=== PATIENT | male | born 1975 | race African-American/Black ===

== ENCOUNTER 2019-05-02 18:16 | Inpatient (IN) | payer OTHER ==
[2019-05-02 21:50] VITALS: BMI 30.8
--- NOTE | 2019-05-02 23:23 | HP ---
"CIWA Score Nausea/Vomitin-No Nausea/No Vomiting Muscle Tremors: 3 Anxiety: 2 Agitation: 4-Moderately Restless Paroxysmal Sweats: 3 (Increased facial moisture) Orientation: 1-Uncertain about Date Tacttile Disturbances: 0-None Auditory Disturbances: 1-Very Mild (States always hears voices) Visual Disturbances: 0-None Headache: 0-None Present CIWA-Ar Total Score: 14 - Admission Criteria [facility]ASAS Guidelines: Admission for Medically Managed Detox: Requires at least one of the followin. CIWA greater than 12 2. Seizures within the past 24 hours 3. Delirium tremens within the past 24 hours 4. Hallucinations within the past 24 hours 5. Acute intervention needed for co occurring medical disorder 6. Acute intervention needed for co occurring psychiatric disorder 7. Severe withdrawal that cannot be handled at a lower level of care (continued vomiting, continued diarrhea, abnormal vital signs) requiring intravenous medication and/or fluids 8. Patient presents the following: CIWA greater than 12 Admission Criteria Met: Admission criteria met Admission ROS S - [facility] Chief Complaint: I'm coming off alcohol. Allergies/Adverse Reactions: Allergies Allergy/AdvReac Type Severity Reaction Status Date / Time No Known Allergies Allergy Verified 05/02/19 21:35 History of Present Illness: [address] [facility] by [facility] out-patient program for alcohol detox. had a PPD at [facility] 4 days ago and does not want to repeat. Alcohol use began at age 26. has been drinking a pint liquor plus beers daily, for years. Cocaine use began at age 26. Marijuana use began at age 22. No length of sobriety. Denies seizures, blackouts, overdoses. PMHx: Denies significant PMH. MHHx: Anxiety and Depression. Denies thoughts of harming self or others. Last saw MH Provider 2 weeks ago. Has not been compliant w/ medications x 3-4 weeks. States hears voices. Voices do not tell him to do bad things. Search Terms: Darrius Baca, 1975 Search Date: 05/02/2019 11:21:05 PM The Drug Utilization Report below displays all of the controlled substance prescriptions, if any, that your patient has filled in the last twelve months. The information displayed on this report is compiled from pharmacy submissions to the Department, and accurately reflects the information as submitted by the pharmacies. This report was requested by: Rashida Roberts | Reference #: [id number] There are no results for the search terms that you entered. Search Terms: Darrius Bcaa, 1975 Search Date: 05/02/2019 11:21:36 PM States Searched: [place], [place], [place], [place], [place], [place], [place] The Drug Utilization Report below displays the controlled substance prescriptions, if any, that were dispensed in the indicated state(s). The information displayed on this report is compiled from requests submitted to other states' PMPs, and accurately reflects the information as returned by them. Blank abad indicate data not provided by other state. This report was requested by: Rashida Roberts | Reference #: [id number] Exam Limitations: No Limitations - Ebola screening Have you traveled outside of the country in the last 21 days: No (N) Have you had contact with anyone from an Ebola affected area: No Have you been sick,other than usual withdrawal symptoms: No (Denies recent exposure to measles) Do you have a fever: No - Review of Systems Constitutional: Diaphoresis EENT: reports: No Symptoms Reported Respiratory: reports: No Symptoms reported Cardiac: reports: No Symptoms Reported GI: reports: No Symptoms Reported : reports: No Symptoms Reported Musculoskeletal: reports: No Symptoms Reported Integumentary: reports: No Symptoms Reported Neuro: reports: No Symptoms reported Endocrine: reports: No Symptoms Reported Hematology: reports: No Symptoms Reported Psychiatric: reports: Judgement Intact, Orientated x3 (Off by 1 day), Agitated, Anxious, Depressed (Denies thoughts of harming self or others.), other (Hears voices) Patient History - PPD History Previous Implant?: Yes Documented Results: Negative w/proof Implanted On Prior [facility] Admission?: No - Smoking Cessation Smoking history: Current every day smoker Have you smoked in the past 12 months: Yes Aproximately how many cigarettes per day: 20 Hx Chewing Tobacco Use: Yes Initiated information on smoking cessation: Yes 'Breaking Loose' booklet given: 05/02/19 - Substance & Tx. History Hx Alcohol Use: Yes Hx Substance Use: Yes Substance Use Type: Alcohol, Cocaine, Marijuana Hx Substance Use Treatment: Yes (detox, ou-patient program ) - Substances abused Cocaine Substance route: Inhalation Frequency: 3-6 times per week Amount used: get it for free. Age of first use: 26 Date of last use: 04/27/19 Marijuana/Hashish Substance route: Smoking Frequency: Daily Amount used: 4 blunts Age of first use: 22 Date of last use: 05/02/19 Alcohol Substance route: Oral Frequency: Daily Amount used: 1 pint / 5 beers of 24 ounces Age of first use: 22 Date of last use: 05/02/19 Admission Physical Exam [facility] - Vital Signs Vital Signs: Vital Signs - 24 hr 05/02/19 21:35 Temperature 97.4 F L Pulse Rate 221 H Respiratory 83 H Rate Blood Pressure 129/88 - Physical General Appearance: Yes: Nourished, Mild Distress, Obese, Sweating (Increased facial moisture), Anxious HEENTM: Yes: EOMI (Jerking movement upon lateral gaze), Hearing grossly Normal, Normocephalic, Normal Voice, NASIR, Pharynx Normal Respiratory: Yes: Chest Non-Tender, Lungs Clear, No Respiratory Distress, No Accessory Muscle Use Neck: Yes: No masses,lesions,Nodules, Supple Breast: Yes: Breast Exam Deferred Cardiology: Yes: Regular Rhythm, Regular Rate, S1, S2 Abdominal: Yes: Non Tender, Soft, Protuberent (Increased abdominal adiposity) Genitourinary: Yes: Within Normal Limits Back: Yes: Normal Inspection Musculoskeletal: Yes: full range of Motion, Gait Steady Extremities: Yes: Normal Capillary Refill, Tremors (Tremors of hands when arms elevated) Neurological: Yes: roof shingler II-XII NML intact (Jerking movement upon lateral gaze), Alert, Motor Strength 5/5, Normal Response, Other (Unsure of exact date) Integumentary: Yes: Normal Color, Warm, Other (cracked skin at toes and feet) Lymphatic: Yes: Within Normal Limits - Diagnostic (1) Alcohol dependence with uncomplicated withdrawal Current Visit: Yes Status: Acute (2) Nicotine dependence, uncomplicated Current Visit: Yes Status: Chronic Qualifiers: Nicotine product type: cigarettes Qualified Code(s): F17.210 - Nicotine dependence, cigarettes, uncomplicated (3) Cocaine dependence, uncomplicated Current Visit: Yes Status: Chronic (4) Cannabis dependence, uncomplicated Current Visit: Yes Status: Chronic (5) Tinea pedis Current Visit: Yes Status: Chronic Qualifiers: Laterality: bilateral Qualified Code(s): B35.3 - Tinea pedis (6) Auditory hallucinations Current Visit: Yes Status: Chronic Comment: Denies thoughts of harming self or others. (7) Nystagmus Current Visit: Yes Status: Acute (8) Obesity (BMI 30.0-34.9) Current Visit: Yes Status: Chronic Cleared for Admission S - Detox or Rehab [facility] Level of Care: Medically Managed Detox Regimen/Protocol: Librium Claeared for Rehab Admission: No Breathalyzer - Breathalyzer Breathalyzer: 0.146 Urine Drug Screen - Test Device Lot number: [id number] Expiration date: 01/23/21 - Control Is test valid?: Yes - Results Drug screen NEGATIVE: No Urine drug screen results: THC-Marijuana, MALISSA-Cocaine Inpatient Rehab Admission - Rehab Decision to Admit Inpatient rehab admission?: No"
[2019-05-02] MEDS ORDERED: BISMUTH SUBSALICYLATE 524 MG/30 ML UD PO PRN (23:56)
[2019-05-02] MEDS ORDERED: METHOCARBAMOL 500 MG TABLET PO PRN (23:56)
[2019-05-02] MEDS ORDERED: MAGNESIUM HYDROX 2400MG/30ML ORAL SUSPENSION 30 ML CUP PO PRN (23:56)
[2019-05-02] MEDS ORDERED: NICOTINE POLACRILEX 2 MG GUM BUC PRN (23:56)
[2019-05-02] MEDS ORDERED: IBUPROFEN 400 MG TABLET (FP) PO PRN (23:56)
[2019-05-02] MEDS ORDERED: MAGNESIUM CITRATE 300 ML BOTTLE PO PRN (23:56)
[2019-05-02] MEDS ORDERED: MAG HYDROX/AL HYDROX/SIMETH 30 ML UNIT-DOSE CUP PO PRN (23:56)
[2019-05-02] MEDS ORDERED: MELATONIN 5 MG TABLETS PO PRN (23:56)
[2019-05-02] MEDS ORDERED: MENTHOL/PHENOL 1 EACH UD MM PRN (23:56)
[2019-05-02] MEDS ORDERED: ACETAMINOPHEN 325 MG TABLET (FP) PO PRN ×2 (23:56)
[2019-05-03] MEDS ORDERED: chlordiazePOXIDE HCL 25 MG CAPSULE PO ONE (00:03)
[2019-05-03] MEDS ORDERED: chlordiazePOXIDE HCL 25 MG CAPSULE PO PRN (00:03)
[2019-05-03] MEDS: chlordiazePOXIDE HCL 25 MG CAPSULE PO SCH ×4 (05:54→22:11)
--- NOTE | 2019-05-03 10:10 | PN ---
S CIWA - CIWA Score Nausea/Vomitin-No Nausea/No Vomiting Muscle Tremors: 2 Anxiety: 2 Agitation: 2 Paroxysmal Sweats: 3 Orientation: 0-Oriented Tacttile Disturbances: 0-None Auditory Disturbances: 0-None Visual Disturbances: 0-None Headache: 2-Mild CIWA-Ar Total Score: 11 [facility] Progress Note (SOAP) Subjective: c/o sweats, headache, anxiety, and shakes. Objective: 05/03/19 10:09 Vital Signs 05/03/19 05/03/19 05/03/19 03:30 06:08 09:25 Temperature 98.6 F 98.4 F Pulse Rate 94 H 88 Respiratory 18 18 18 Rate Blood Pressure 128/80 146/96 Labs pending. Assessment: 05/03/19 10:09 AOX3, in no respiratory distress, full rom, ambulating in the unit. Withdrawal symptoms. Plan: continue detox increase fluids.
[2019-05-03] MEDS: PRENATAL VITAMINS W/ FOLIC ACID TABLET (FP) PO SCH (10:21)
[2019-05-03] MEDS: NICOTINE 21 MG/24 HOURS TOPICAL PATCH TD SCH (10:22)
[2019-05-03 11:05] LABS: ALBUMIN 3.7 g/dl (3.4-5.0); BILIRUBIN,TOTAL 0.2 mg/dL (0.2-1); BLOOD UREA NITROGEN 14.7 mg/dL (7-18); CALCIUM 8.9 mg/dL (8.5-10.1); CREATININE 1.1 mg/dL (0.55-1.3); POTASSIUM 4.4 mmol/L (3.5-5.1); TOT PROT 7.8 g/dl (6.4-8.2)
[2019-05-03 11:47] LABS: PH,URINE 5.5 (5.0-8.0); URINE APPEARANCE CLEAR; URINE BILIRUBIN NEGATIVE (NEGATIVE); URINE COLOR YELLOW; URINE GLUCOSE (UA) NEGATIVE (NEGATIVE); URINE KETONE NEGATIVE (NEGATIVE); URINE LEUK ESTERASE NEGATIVE (NEGATIVE); URINE NITRITE NEGATIVE (NEGATIVE); URINE PROTEIN NEGATIVE (NEGATIVE); URINE UROBILINOGEN 0.2 mg/dL (0.2-1.0)
[2019-05-03 11:53] LABS: HEMATOCRIT 41.9 % (35.4-49); HEMOGLOBIN 13.7 GM/dL (11.7-16.9); MCH 26.7 pg (25.7-33.7); MCHC 32.6 g/dl (32.0-35.9); MEAN PLT VOLUME 9.2 fl (7.5-11.1); RBC 5.11 M/mm3 (4.00-5.60); RDW 16.1 % (11.9-15.9); WHITE BLOOD COUNT 3.1 K/mm3 (4.0-10.0)
--- NOTE | 2019-05-03 12:45 | CONSULT ---
[facility] Psychiatric Consult - Data Date of interview: 05/03/19 Admission source: [facility] Identifying data: THREE visits at bedside for the purpose of psychiatric interview. Mr Baca refuses. Discussed with nursing staff.
[2019-05-03 18:00] LABS: PLATELET COUNT 194 K/MM3 (134-434)
[2019-05-03] MEDS: THIAMINE HCL 100 MG TABLET (FP) PO SCH (22:11)
[2019-05-04] MEDS: chlordiazePOXIDE HCL 25 MG CAPSULE PO SCH ×4 (06:09→22:01)
[2019-05-04] MEDS: PRENATAL VITAMINS W/ FOLIC ACID TABLET (FP) PO SCH (10:37)
[2019-05-04] MEDS: NICOTINE 21 MG/24 HOURS TOPICAL PATCH TD SCH (10:38)
--- NOTE | 2019-05-04 11:33 | PN ---
[facility] CIWA - CIWA Score Nausea/Vomitin-No Nausea/No Vomiting Muscle Tremors: 2 Anxiety: 2 Agitation: 2 Paroxysmal Sweats: 1-Minimal Palms Moist Orientation: 0-Oriented Tacttile Disturbances: 0-None Auditory Disturbances: 0-None Visual Disturbances: 0-None Headache: 1-Very Mild CIWA-Ar Total Score: 8 S Progress Note (SOAP) Subjective: long history of hypertension non adherence with medication denies chest pain mild headache Objective: 05/04/19 11:37 Vital Signs Temperature 97.8 F 05/04/19 09:11 Pulse Rate 83 05/04/19 09:11 Respiratory Rate 20 05/04/19 09:11 Blood Pressure 153/100 05/04/19 09:11 O2 Sat by Pulse Oximetry (%) Laboratory Last Values WBC 3.1 K/mm3 (4.0-10.0) L 05/03/19 08:00 RBC 5.11 M/mm3 (4.00-5.60) 05/03/19 08:00 Hgb 13.7 GM/dL (11.7-16.9) 05/03/19 08:00 Hct 41.9 % (35.4-49) 05/03/19 08:00 MCV 82.0 fl (80-96) 05/03/19 08:00 MCH 26.7 pg (25.7-33.7) 05/03/19 08:00 MCHC 32.6 g/dl (32.0-35.9) 05/03/19 08:00 RDW 16.1 % (11.9-15.9) H 05/03/19 08:00 Plt Count 194 K/MM3 (134-434) 05/03/19 08:00 MPV 9.2 fl (7.5-11.1) 05/03/19 08:00 Sodium 143 mmol/L (136-145) 05/03/19 08:00 Potassium 4.4 mmol/L (3.5-5.1) 05/03/19 08:00 Chloride 112 mmol/L (98-107) H 05/03/19 08:00 Carbon Dioxide 24 mmol/L (21-32) 05/03/19 08:00 Anion Gap 7 MMOL/L (8-16) L 05/03/19 08:00 BUN 14.7 mg/dL (7-18) 05/03/19 08:00 Creatinine 1.1 mg/dL (0.55-1.3) 05/03/19 08:00 Est GFR (CKD-EPI)AfAm 94.79 05/03/19 08:00 Est GFR (CKD-EPI)NonAf 81.78 05/03/19 08:00 Random Glucose 82 mg/dL (74-106) 05/03/19 08:00 Calcium 8.9 mg/dL (8.5-10.1) 05/03/19 08:00 Total Bilirubin 0.2 mg/dL (0.2-1) 05/03/19 08:00 AST 35 U/L (15-37) 05/03/19 08:00 ALT 31 U/L (13-61) 05/03/19 08:00 Alkaline Phosphatase 87 U/L (45-117) 05/03/19 08:00 Total Protein 7.8 g/dl (6.4-8.2) 05/03/19 08:00 Albumin 3.7 g/dl (3.4-5.0) 05/03/19 08:00 Urine Color Yellow 05/03/19 09:00 Urine Appearance Clear 05/03/19 09:00 Urine pH 5.5 (5.0-8.0) 05/03/19 09:00 Ur Specific [place] 1.004 (1.010-1.035) L 05/03/19 09:00 Urine Protein Negative (NEGATIVE) 05/03/19 09:00 Urine Glucose (UA) Negative (NEGATIVE) 05/03/19 09:00 Urine Ketones Negative (NEGATIVE) 05/03/19 09:00 Urine Blood Negative (NEGATIVE) 05/03/19 09:00 Urine Nitrite Negative (NEGATIVE) 05/03/19 09:00 Urine Bilirubin Negative (NEGATIVE) 05/03/19 09:00 Urine Urobilinogen 0.2 mg/dL (0.2-1.0) 05/03/19 09:00 Ur Leukocyte Esterase Negative (NEGATIVE) 05/03/19 09:00 RPR Titer Nonreactive (NONREACTIVE) 05/03/19 08:00 lab noted begin amlodipine 5 mg po bid Assessment: 05/04/19 11:37 alcohol withdrawal sx Plan: continue detox
[2019-05-04] MEDS: amLODIPine BESYLATE 5 MG TABLET (FP) PO SCH ×2 (12:16→22:01)
[2019-05-04] MEDS: THIAMINE HCL 100 MG TABLET (FP) PO SCH (22:01)
[2019-05-05] MEDS ORDERED: chlordiazePOXIDE HCL 10 MG CAPSULE PO PRN (05:00)
[2019-05-05] MEDS ORDERED: chlordiazePOXIDE HCL 10 MG CAPSULE PO SCH (05:00)
[2019-05-05 05:58] VITALS: BP 123/89; PULSE 72; TEMP 98.2
--- NOTE | 2019-05-05 11:54 | DS ---
[facility] Detox Discharge Summary Admission Date: 05/02/19 Discharge Date: 05/05/19 - History Present History: Alcohol Dependence Additional Comments: 44 years old male admitted on 05/02/19 for alcohol withdrawal stabilization feeling better today prefers to go to [facility] today alert no acute distress Pertinent Past History: bring in medication list and lab report to aftercare appointment - Physical Exam Results Vital Signs: Vital Signs Temperature 98.2 F 05/05/19 05:57 Pulse Rate 72 05/05/19 05:57 Respiratory Rate 18 05/05/19 06:26 Blood Pressure 123/89 05/05/19 05:57 O2 Sat by Pulse Oximetry (%) Pertinent Admission Physical Exam Findings: alcohol withdrawal sx Laboratory Last Values WBC 3.1 K/mm3 (4.0-10.0) L 05/03/19 08:00 RBC 5.11 M/mm3 (4.00-5.60) 05/03/19 08:00 Hgb 13.7 GM/dL (11.7-16.9) 05/03/19 08:00 Hct 41.9 % (35.4-49) 05/03/19 08:00 MCV 82.0 fl (80-96) 05/03/19 08:00 MCH 26.7 pg (25.7-33.7) 05/03/19 08:00 MCHC 32.6 g/dl (32.0-35.9) 05/03/19 08:00 RDW 16.1 % (11.9-15.9) H 05/03/19 08:00 Plt Count 194 K/MM3 (134-434) 05/03/19 08:00 MPV 9.2 fl (7.5-11.1) 05/03/19 08:00 Sodium 143 mmol/L (136-145) 05/03/19 08:00 Potassium 4.4 mmol/L (3.5-5.1) 05/03/19 08:00 Chloride 112 mmol/L (98-107) H 05/03/19 08:00 Carbon Dioxide 24 mmol/L (21-32) 05/03/19 08:00 Anion Gap 7 MMOL/L (8-16) L 05/03/19 08:00 BUN 14.7 mg/dL (7-18) 05/03/19 08:00 Creatinine 1.1 mg/dL (0.55-1.3) 05/03/19 08:00 Est GFR (CKD-EPI)AfAm 94.79 05/03/19 08:00 Est GFR (CKD-EPI)NonAf 81.78 05/03/19 08:00 Random Glucose 82 mg/dL (74-106) 05/03/19 08:00 Calcium 8.9 mg/dL (8.5-10.1) 05/03/19 08:00 Total Bilirubin 0.2 mg/dL (0.2-1) 05/03/19 08:00 AST 35 U/L (15-37) 05/03/19 08:00 ALT 31 U/L (13-61) 05/03/19 08:00 Alkaline Phosphatase 87 U/L (45-117) 05/03/19 08:00 Total Protein 7.8 g/dl (6.4-8.2) 05/03/19 08:00 Albumin 3.7 g/dl (3.4-5.0) 05/03/19 08:00 Urine Color Yellow 05/03/19 09:00 Urine Appearance Clear 05/03/19 09:00 Urine pH 5.5 (5.0-8.0) 05/03/19 09:00 Ur Specific [place] 1.004 (1.010-1.035) L 05/03/19 09:00 Urine Protein Negative (NEGATIVE) 05/03/19 09:00 Urine Glucose (UA) Negative (NEGATIVE) 05/03/19 09:00 Urine Ketones Negative (NEGATIVE) 05/03/19 09:00 Urine Blood Negative (NEGATIVE) 05/03/19 09:00 Urine Nitrite Negative (NEGATIVE) 05/03/19 09:00 Urine Bilirubin Negative (NEGATIVE) 05/03/19 09:00 Urine Urobilinogen 0.2 mg/dL (0.2-1.0) 05/03/19 09:00 Ur Leukocyte Esterase Negative (NEGATIVE) 05/03/19 09:00 RPR Titer Nonreactive (NONREACTIVE) 05/03/19 08:00 lab noted - Treatment Hospital Course: Detox Protocol Followed, Detoxed Safely, Responded well, Discharged Condition Good, Rehab Referral Accepted Patient has Accepted a Rehab Referral to: [facility] - Medication Discharge Medications: Ambulatory Orders Risperidone [Risperdal] 20 mg PO HS 05/02/19 Amlodipine Besylate [Norvasc -] 5 mg PO BID #30 tablet 05/05/19 - Diagnosis (1) Hypertension Status: Chronic Qualifiers: Hypertension type: essential hypertension Qualified Code(s): I10 - Essential (primary) hypertension (2) Alcohol dependence with uncomplicated withdrawal Status: Acute (3) Nicotine dependence, uncomplicated Status: Acute Qualifiers: Nicotine product type: cigarettes Qualified Code(s): F17.210 - Nicotine dependence, cigarettes, uncomplicated - AMA Did Patient Leave Against Medical Advice: No
[2019-05-06] MEDS ORDERED: chlordiazePOXIDE HCL 10 MG CAPSULE PO SCH (05:00)
== END 2019-05-05 08:50 | disposition home or self-care (01) | DRG 774 ==
LOC: YASAS 18:16 → Y3N 23:36
PROVIDERS: ADMIT Surgery; ATTEND Surgery
PROC: HZ2ZZZZ Detoxification Services for Substance Abuse Treatment (ICD-10-PCS; principal; 2019-05-02)
DX: F10.230 Alcohol dependence with withdrawal, uncomplicated (principal); F14.20 Cocaine dependence, uncomplicated; F12.20 Cannabis dependence, uncomplicated; F17.210 Nicotine dependence, cigarettes, uncomplicated; I10 Essential (primary) hypertension; B35.3 Tinea pedis; H55.00 Unspecified nystagmus; R44.0 Auditory hallucinations; E66.9 Obesity, unspecified; Z68.30 Body mass index [BMI] 30.0-30.9, adult
CPT/HCPCS: 36415; 80053; 81003; 85027; 86593

== ENCOUNTER 2022-03-21 14:07 | Inpatient (IN) | payer OTHER ==
[2022-03-21] MEDS ORDERED: MAGNESIUM HYDROX 2400MG/30ML ORAL SUSPENSION 30 ML CUP PO PRN (15:45)
[2022-03-21] MEDS ORDERED: P-EPHED 60MG/TRIPROLIDI 2.5MG TABLET PO PRN (15:45)
[2022-03-21] MEDS ORDERED: NICOTINE 10 MG CARTRIDGE (INHALER) IH PRN (15:45)
[2022-03-21] MEDS ORDERED: ACETAMINOPHEN 325 MG TABLET (FP) PO PRN (15:45)
[2022-03-21] MEDS ORDERED: LOPERAMIDE HCL 2 MG CAPSULE PO PRN (15:45)
[2022-03-21] MEDS ORDERED: MAGNESIUM CITRATE 300 ML BOTTLE PO PRN (15:45)
[2022-03-21] MEDS ORDERED: MAG HYDROX/AL HYDROX/SIMETH 30 ML UNIT-DOSE CUP PO PRN (15:45)
[2022-03-21] MEDS ORDERED: guaiFENesin 200 MG/10 ML 10 ML UNIT-DOSE CUPS PO PRN (15:45)
[2022-03-21] MEDS ORDERED: MELATONIN 5 MG TABLETS PO SCH (22:00)
[2022-03-22] MEDS ORDERED: TUBERCULIN PPD 5 TU/0.1ML VIAL ID ONE (01:51)
[2022-03-22] MEDS: PRENATAL VITAMINS W/ FOLIC ACID TABLET (FP) PO SCH ×2 (02:25→09:51)
[2022-03-22] MEDS: NICOTINE 7 MG/24 HOURS TOPICAL PATCH TD SCH ×2 (02:25→09:51)
[2022-03-22] MEDS: THIAMINE HCL 100 MG TABLET (FP) PO SCH ×2 (02:26→21:32)
[2022-03-22] MEDS: hydrOXYzine PAMOATE 25 MG CAPSULE (FP) PO SCH ×3 (02:26→07:07)
[2022-03-22] MEDS ORDERED: hydrOXYzine PAMOATE 25 MG CAPSULE (FP) PO PRN (08:17)
[2022-03-22] MEDS: IBUPROFEN 400 MG TABLET (FP) PO PRN ×2 (09:50→15:33)
[2022-03-22 12:15] LABS: HEMATOCRIT 35.9 % (35.4-49); HEMOGLOBIN 11.8 GM/dL (11.7-16.9); MCH 28.2 pg (25.7-33.7); MCHC 32.9 g/dl (32.0-35.9); MEAN CELL VOLUME 85.9 fl (80-96); MEAN PLT VOLUME 9.9 fl (7.5-11.1); PLATELET COUNT 80 10^3/uL (134-434); RBC 4.18 M/mm3 (4.00-5.60); RDW 15.7 % (11.9-15.9); WHITE BLOOD COUNT 4.2 K/mm3 (4.0-10.0)
[2022-03-22 12:20] LABS: ALBUMIN 2.8 g/dl (3.4-5.0); CALCIUM 9.2 mg/dL (8.5-10.1)
[2022-03-22 12:22] LABS: BLOOD UREA NITROGEN 7.7 mg/dL (7-18)
[2022-03-22 12:25] LABS: BILIRUBIN,TOTAL 2.1 mg/dL (0.2-1); TOT PROT 7.5 g/dl (6.4-8.2)
[2022-03-22 12:48] LABS: SYPHILIS W/ RPR CONF NON-REACTIVE (NONREACTIVE)
[2022-03-22 14:13] LABS: EPI CELLS 8 /uL (0-25.1); HYALINE CASTS 1 /uL (0-3.1); URINE APPEARANCE CLEAR; URINE BACTERIA 7 /uL (0-1359); URINE BILIRUBIN 1+ (NEGATIVE); URINE COLOR DK YELLOW; URINE GLUCOSE (UA) NEGATIVE (NEGATIVE); URINE KETONE NEGATIVE (NEGATIVE); URINE LEUK ESTERASE TRACE (NEGATIVE); URINE NITRITE NEGATIVE (NEGATIVE); URINE PROTEIN NEGATIVE (NEGATIVE); URINE RBC 4 /uL (0-23.9); URINE WBC 15 /uL (0-25.8)
[2022-03-22] MEDS ORDERED: ACETAMINOPHEN 325 MG TABLET (FP) PO PRN (15:23)
[2022-03-22] MEDS ORDERED: IBUPROFEN 400 MG TABLET (FP) PO PRN (15:35)
[2022-03-22] MEDS: BENZTROPINE MESYLATE 1 MG TABLET PO SCH (21:33)
[2022-03-22] MEDS: traZODone HCL 50 MG TABLET (FP) PO SCH (21:33)
[2022-03-22] MEDS: busPIRone HCL 10 MG TABLET (FP) PO SCH (21:33)
[2022-03-23] MEDS: PRENATAL VITAMINS W/ FOLIC ACID TABLET (FP) PO SCH (10:09)
[2022-03-23] MEDS: ESCITALOPRAM OXALATE 10 MG TABLET PO SCH (10:09)
[2022-03-23] MEDS: busPIRone HCL 10 MG TABLET (FP) PO SCH ×2 (10:09→21:28)
[2022-03-23] MEDS: BENZTROPINE MESYLATE 1 MG TABLET PO SCH ×2 (10:09→21:28)
[2022-03-23] MEDS: NICOTINE 7 MG/24 HOURS TOPICAL PATCH TD SCH (11:08)
[2022-03-23] MEDS ORDERED: ACETAMINOPHEN 325 MG TABLET (FP) PO PRN (17:36)
[2022-03-23] MEDS: IBUPROFEN 400 MG TABLET (FP) PO PRN (17:49)
[2022-03-23] MEDS: traZODone HCL 50 MG TABLET (FP) PO SCH (21:28)
[2022-03-23] MEDS: THIAMINE HCL 100 MG TABLET (FP) PO SCH (21:28)
[2022-03-24] MEDS: ESCITALOPRAM OXALATE 10 MG TABLET PO SCH (10:26)
[2022-03-24] MEDS: busPIRone HCL 10 MG TABLET (FP) PO SCH ×2 (10:26→21:33)
[2022-03-24] MEDS: BENZTROPINE MESYLATE 1 MG TABLET PO SCH ×2 (10:26→21:33)
[2022-03-24] MEDS: NICOTINE 7 MG/24 HOURS TOPICAL PATCH TD SCH (10:26)
[2022-03-24] MEDS: PRENATAL VITAMINS W/ FOLIC ACID TABLET (FP) PO SCH (10:26)
[2022-03-24] MEDS: IBUPROFEN 400 MG TABLET (FP) PO PRN ×2 (10:27→21:34)
[2022-03-24] MEDS: traZODone HCL 50 MG TABLET (FP) PO SCH (21:33)
[2022-03-24] MEDS: THIAMINE HCL 100 MG TABLET (FP) PO SCH (21:46)
[2022-03-25] MEDS: PRENATAL VITAMINS W/ FOLIC ACID TABLET (FP) PO SCH (09:31)
[2022-03-25] MEDS: busPIRone HCL 10 MG TABLET (FP) PO SCH ×2 (09:31→21:11)
[2022-03-25] MEDS: BENZTROPINE MESYLATE 1 MG TABLET PO SCH ×2 (09:31→21:11)
[2022-03-25] MEDS: ESCITALOPRAM OXALATE 10 MG TABLET PO SCH (09:31)
[2022-03-25] MEDS: IBUPROFEN 400 MG TABLET (FP) PO PRN ×2 (09:32→21:11)
[2022-03-25] MEDS: NICOTINE 7 MG/24 HOURS TOPICAL PATCH TD SCH (11:13)
[2022-03-25] MEDS: THIAMINE HCL 100 MG TABLET (FP) PO SCH (21:10)
[2022-03-25] MEDS: traZODone HCL 50 MG TABLET (FP) PO SCH (21:11)
[2022-03-26] MEDS: busPIRone HCL 10 MG TABLET (FP) PO SCH ×2 (09:32→21:20)
[2022-03-26] MEDS: BENZTROPINE MESYLATE 1 MG TABLET PO SCH ×2 (09:32→21:20)
[2022-03-26] MEDS: ESCITALOPRAM OXALATE 10 MG TABLET PO SCH (09:32)
[2022-03-26] MEDS: NICOTINE 7 MG/24 HOURS TOPICAL PATCH TD SCH (09:33)
[2022-03-26] MEDS: PRENATAL VITAMINS W/ FOLIC ACID TABLET (FP) PO SCH (09:33)
[2022-03-26] MEDS: traZODone HCL 50 MG TABLET (FP) PO SCH (21:20)
[2022-03-26] MEDS: THIAMINE HCL 100 MG TABLET (FP) PO SCH (21:20)
[2022-03-27 00:06] LABS: SARS-CoV-2 NAA Not Detected (Not Detected)
[2022-03-27] MEDS: ESCITALOPRAM OXALATE 10 MG TABLET PO SCH (09:47)
[2022-03-27] MEDS: busPIRone HCL 10 MG TABLET (FP) PO SCH ×2 (09:47→21:22)
[2022-03-27] MEDS: BENZTROPINE MESYLATE 1 MG TABLET PO SCH ×2 (09:47→21:22)
[2022-03-27] MEDS: NICOTINE 7 MG/24 HOURS TOPICAL PATCH TD SCH (09:48)
[2022-03-27] MEDS: PRENATAL VITAMINS W/ FOLIC ACID TABLET (FP) PO SCH (09:48)
[2022-03-27 12:38] LABS: INR 1.08 (0.83-1.09); PROTHROMBIN TIME (PATIENT) 12.4 SEC (9.7-13.0)
[2022-03-27 13:01] LABS: CALCIUM 9.1 mg/dL (8.5-10.1)
[2022-03-27 13:02] LABS: ALBUMIN 2.9 g/dl (3.4-5.0); BLOOD UREA NITROGEN 6.2 mg/dL (7-18)
[2022-03-27 13:06] LABS: TOT PROT 7.2 g/dl (6.4-8.2)
[2022-03-27 13:07] LABS: BILIRUBIN,TOTAL 1.2 mg/dL (0.2-1)
[2022-03-27] MEDS ORDERED: COLLOIDAL OATMEAL 1 BAR EACH TP PRN (14:27)
[2022-03-27] MEDS: traZODone HCL 50 MG TABLET (FP) PO SCH (21:22)
[2022-03-27] MEDS: THIAMINE HCL 100 MG TABLET (FP) PO SCH (21:22)
[2022-03-27] MEDS: HYDROCORTISONE 1% TOPICAL CREAM 30 GM TUBE TP SCH (21:24)
[2022-03-28] MEDS: PRENATAL VITAMINS W/ FOLIC ACID TABLET (FP) PO SCH (09:50)
[2022-03-28] MEDS: BENZTROPINE MESYLATE 1 MG TABLET PO SCH ×2 (09:50→21:15)
[2022-03-28] MEDS: ESCITALOPRAM OXALATE 10 MG TABLET PO SCH (09:50)
[2022-03-28] MEDS: busPIRone HCL 10 MG TABLET (FP) PO SCH ×2 (09:50→21:15)
[2022-03-28] MEDS: NICOTINE 7 MG/24 HOURS TOPICAL PATCH TD SCH (09:51)
[2022-03-28] MEDS: HYDROCORTISONE 1% TOPICAL CREAM 30 GM TUBE TP SCH ×2 (09:51→21:16)
[2022-03-28] MEDS: traZODone HCL 50 MG TABLET (FP) PO SCH (21:15)
[2022-03-28] MEDS: THIAMINE HCL 100 MG TABLET (FP) PO SCH (21:16)
[2022-03-29] MEDS: HYDROCORTISONE 1% TOPICAL CREAM 30 GM TUBE TP SCH ×2 (09:45→21:36)
[2022-03-29] MEDS: PRENATAL VITAMINS W/ FOLIC ACID TABLET (FP) PO SCH (09:45)
[2022-03-29] MEDS: busPIRone HCL 10 MG TABLET (FP) PO SCH ×2 (09:45→21:34)
[2022-03-29] MEDS: ESCITALOPRAM OXALATE 10 MG TABLET PO SCH (09:45)
[2022-03-29] MEDS: NICOTINE 7 MG/24 HOURS TOPICAL PATCH TD SCH (09:45)
[2022-03-29] MEDS: BENZTROPINE MESYLATE 1 MG TABLET PO SCH ×2 (09:45→21:34)
[2022-03-29] MEDS: THIAMINE HCL 100 MG TABLET (FP) PO SCH (21:34)
[2022-03-29] MEDS: traZODone HCL 50 MG TABLET (FP) PO SCH (21:34)
[2022-03-30] MEDS: BENZTROPINE MESYLATE 1 MG TABLET PO SCH ×2 (09:38→21:03)
[2022-03-30] MEDS: busPIRone HCL 10 MG TABLET (FP) PO SCH ×2 (09:38→21:03)
[2022-03-30] MEDS: PRENATAL VITAMINS W/ FOLIC ACID TABLET (FP) PO SCH (09:38)
[2022-03-30] MEDS: ESCITALOPRAM OXALATE 10 MG TABLET PO SCH (09:38)
[2022-03-30] MEDS: HYDROCORTISONE 1% TOPICAL CREAM 30 GM TUBE TP SCH ×2 (09:39→21:04)
[2022-03-30] MEDS: NICOTINE 7 MG/24 HOURS TOPICAL PATCH TD SCH (09:39)
[2022-03-30] MEDS: IBUPROFEN 400 MG TABLET (FP) PO PRN (14:40)
[2022-03-30] MEDS: THIAMINE HCL 100 MG TABLET (FP) PO SCH (21:03)
[2022-03-30] MEDS: MELATONIN 5 MG TABLETS PO PRN (21:03)
[2022-03-30] MEDS: traZODone HCL 50 MG TABLET (FP) PO SCH (21:03)
[2022-03-31] MEDS: busPIRone HCL 10 MG TABLET (FP) PO SCH ×2 (10:00→21:07)
[2022-03-31] MEDS: ESCITALOPRAM OXALATE 10 MG TABLET PO SCH (10:00)
[2022-03-31] MEDS: PRENATAL VITAMINS W/ FOLIC ACID TABLET (FP) PO SCH (10:00)
[2022-03-31] MEDS: BENZTROPINE MESYLATE 1 MG TABLET PO SCH ×2 (10:00→21:07)
[2022-03-31] MEDS: HYDROCORTISONE 1% TOPICAL CREAM 30 GM TUBE TP SCH ×2 (10:01→21:07)
[2022-03-31] MEDS: NICOTINE 7 MG/24 HOURS TOPICAL PATCH TD SCH (10:01)
[2022-03-31] MEDS: MELATONIN 5 MG TABLETS PO PRN (21:06)
[2022-03-31] MEDS: traZODone HCL 50 MG TABLET (FP) PO SCH (21:06)
[2022-03-31] MEDS: THIAMINE HCL 100 MG TABLET (FP) PO SCH (21:06)
[2022-04-01 06:26] VITALS: TEMP 97.1
[2022-04-01] MEDS: PRENATAL VITAMINS W/ FOLIC ACID TABLET (FP) PO SCH (10:00)
[2022-04-01] MEDS: ESCITALOPRAM OXALATE 10 MG TABLET PO SCH (10:01)
[2022-04-01] MEDS: busPIRone HCL 10 MG TABLET (FP) PO SCH ×2 (10:01→21:17)
[2022-04-01] MEDS: BENZTROPINE MESYLATE 1 MG TABLET PO SCH ×2 (10:01→21:17)
[2022-04-01] MEDS: NICOTINE 7 MG/24 HOURS TOPICAL PATCH TD SCH (10:02)
[2022-04-01] MEDS: HYDROCORTISONE 1% TOPICAL CREAM 30 GM TUBE TP SCH ×2 (11:20→21:18)
[2022-04-01] MEDS: traZODone HCL 50 MG TABLET (FP) PO SCH (21:18)
[2022-04-01] MEDS: THIAMINE HCL 100 MG TABLET (FP) PO SCH (21:18)
[2022-04-02] MEDS: ESCITALOPRAM OXALATE 10 MG TABLET PO SCH (09:38)
[2022-04-02] MEDS: PRENATAL VITAMINS W/ FOLIC ACID TABLET (FP) PO SCH (09:38)
[2022-04-02] MEDS: NICOTINE 7 MG/24 HOURS TOPICAL PATCH TD SCH (09:38)
[2022-04-02] MEDS: BENZTROPINE MESYLATE 1 MG TABLET PO SCH ×2 (09:38→21:08)
[2022-04-02] MEDS: busPIRone HCL 10 MG TABLET (FP) PO SCH ×2 (09:38→21:08)
[2022-04-02] MEDS: HYDROCORTISONE 1% TOPICAL CREAM 30 GM TUBE TP SCH ×2 (10:16→21:09)
[2022-04-02] MEDS: THIAMINE HCL 100 MG TABLET (FP) PO SCH (21:06)
[2022-04-02] MEDS: MELATONIN 5 MG TABLETS PO PRN (21:06)
[2022-04-02] MEDS: IBUPROFEN 400 MG TABLET (FP) PO PRN (21:07)
[2022-04-02] MEDS: traZODone HCL 50 MG TABLET (FP) PO SCH (21:08)
[2022-04-03 06:28] VITALS: BP 152/92; PULSE 91
[2022-04-03] MEDS: HYDROCORTISONE 1% TOPICAL CREAM 30 GM TUBE TP SCH (09:10)
[2022-04-03] MEDS: BENZTROPINE MESYLATE 1 MG TABLET PO SCH (09:10)
[2022-04-03] MEDS: busPIRone HCL 10 MG TABLET (FP) PO SCH (09:10)
[2022-04-03] MEDS: NICOTINE 7 MG/24 HOURS TOPICAL PATCH TD SCH (09:11)
[2022-04-03] MEDS: PRENATAL VITAMINS W/ FOLIC ACID TABLET (FP) PO SCH (09:11)
[2022-04-03] MEDS: ESCITALOPRAM OXALATE 10 MG TABLET PO SCH (09:11)
== END 2022-04-03 09:25 | disposition home or self-care (01) | DRG 772 ==
LOC: YASAS 14:07 → Y3E 03-22 01:20
PROVIDERS: ADMIT Allergy & Immunology; ATTEND Allergy & Immunology
PROC: HZ42ZZZ Group Counseling for Substance Abuse Treatment, Cognitive-Behavioral (ICD-10-PCS; principal; 2022-03-22)
DX: F10.20 Alcohol dependence, uncomplicated (principal); F12.20 Cannabis dependence, uncomplicated; F17.210 Nicotine dependence, cigarettes, uncomplicated; F19.24 Other psychoactive substance dependence with psychoactive substance-induced mood disorder; F25.9 Schizoaffective disorder, unspecified; F41.9 Anxiety disorder, unspecified; F32.A Depression, unspecified; R94.5 Abnormal results of liver function studies; R82.998 Other abnormal findings in urine; Z28.310 Unvaccinated for COVID-19
CPT/HCPCS: 36415; 80053; 81003; 85027; 85610; 86780; 86803; 87086; 93005; 93010; C9803-CS; U0003; U0005

== ENCOUNTER 2022-07-18 12:23 | Inpatient (IN) | payer OTHER ==
[2022-07-18 14:47] VITALS: BMI 29.8
[2022-07-18] MEDS ORDERED: MAGNESIUM HYDROX 2400MG/30ML ORAL SUSPENSION 30 ML CUP PO PRN (15:47)
[2022-07-18] MEDS ORDERED: LOPERAMIDE HCL 2 MG CAPSULE PO PRN (15:47)
[2022-07-18] MEDS ORDERED: NICOTINE 10 MG CARTRIDGE (INHALER) IH PRN (15:47)
[2022-07-18] MEDS ORDERED: IBUPROFEN 400 MG TABLET (FP) PO PRN (15:47)
[2022-07-18] MEDS ORDERED: MAGNESIUM CITRATE 300 ML BOTTLE PO PRN (15:47)
[2022-07-18] MEDS ORDERED: BISMUTH SUBSALICYLATE 524 MG/30 ML PO PRN (15:47)
[2022-07-18] MEDS ORDERED: ACETAMINOPHEN 325 MG TABLET (FP) PO PRN ×2 (15:47)
[2022-07-18] MEDS ORDERED: ONDANSETRON *ODT* 4 MG TABLET SL PRN (15:47)
[2022-07-18] MEDS ORDERED: MAG HYDROX/AL HYDROX/SIMETH 30 ML UNIT-DOSE CUP PO PRN (15:47)
[2022-07-18] MEDS ORDERED: DICYCLOMINE HCL 10 MG CAPSULE PO PRN (15:47)
[2022-07-18] MEDS ORDERED: METHOCARBAMOL 500 MG TABLET PO PRN (15:47)
[2022-07-18] MEDS ORDERED: chlordiazePOXIDE HCL 25 MG CAPSULE PO PRN (15:47)
[2022-07-18] MEDS ORDERED: BENZOCAINE/MENTHOL (CHLORASEPTIC ) LOZENGE MM PRN (15:47)
[2022-07-18] MEDS: ESCITALOPRAM OXALATE 10 MG TABLET PO SCH (17:31)
[2022-07-18] MEDS: IBUPROFEN 600 MG TABLET (FP) PO PRN (17:32)
[2022-07-18] MEDS: PRENATAL VITAMINS W/ FOLIC ACID TABLET (FP) PO SCH (17:32)
[2022-07-18] MEDS: chlordiazePOXIDE HCL 25 MG CAPSULE PO SCH ×2 (17:32→22:47)
[2022-07-18] MEDS: hydrOXYzine PAMOATE 25 MG CAPSULE (FP) PO SCH ×2 (17:33→22:47)
[2022-07-18] MEDS ORDERED: MELATONIN 5 MG TABLETS PO SCH (22:00)
[2022-07-18] MEDS: THIAMINE HCL 100 MG TABLET (FP) PO SCH (22:46)
[2022-07-18] MEDS: BENZTROPINE MESYLATE 1 MG TABLET PO SCH (22:46)
[2022-07-18] MEDS: traZODone HCL 50 MG TABLET (FP) PO SCH (22:46)
[2022-07-18] MEDS: amLODIPine BESYLATE 5 MG TABLET (FP) PO SCH (22:46)
[2022-07-19] MEDS: hydrOXYzine PAMOATE 25 MG CAPSULE (FP) PO SCH ×5 (06:19→22:12)
[2022-07-19] MEDS: chlordiazePOXIDE HCL 25 MG CAPSULE PO SCH ×4 (06:19→22:13)
[2022-07-19 10:38] LABS: HEMATOCRIT 35.2 % (35.4-49); HEMOGLOBIN 11.6 GM/dL (11.7-16.9); MCH 29.8 pg (25.7-33.7); MCHC 32.9 g/dl (32.0-35.9); MEAN CELL VOLUME 90.4 fl (80-96); MEAN PLT VOLUME 8.9 fl (7.5-11.1); PLATELET COUNT 178 10^3/uL (134-434); RDW 16.4 % (11.9-15.9); WHITE BLOOD COUNT 4.7 K/mm3 (4.0-10.0)
[2022-07-19 10:41] LABS: ALBUMIN 3.4 g/dl (3.4-5.0)
[2022-07-19 10:42] LABS: BLOOD UREA NITROGEN 10.5 mg/dL (7-18); CALCIUM 9.2 mg/dL (8.5-10.1)
[2022-07-19 10:44] LABS: CREATININE 0.9 mg/dL (0.55-1.3)
[2022-07-19 10:46] LABS: TOT PROT 7.6 g/dl (6.4-8.2)
[2022-07-19 10:48] LABS: BILIRUBIN,TOTAL 1.1 mg/dL (0.2-1)
[2022-07-19] MEDS: ESCITALOPRAM OXALATE 10 MG TABLET PO SCH (10:50)
[2022-07-19] MEDS: BENZTROPINE MESYLATE 1 MG TABLET PO SCH ×2 (10:50→22:12)
[2022-07-19] MEDS: amLODIPine BESYLATE 5 MG TABLET (FP) PO SCH ×2 (10:50→22:12)
[2022-07-19] MEDS: PRENATAL VITAMINS W/ FOLIC ACID TABLET (FP) PO SCH (10:53)
[2022-07-19] MEDS: traZODone HCL 50 MG TABLET (FP) PO SCH (22:12)
[2022-07-19] MEDS: THIAMINE HCL 100 MG TABLET (FP) PO SCH (22:12)
[2022-07-20] MEDS: chlordiazePOXIDE HCL 25 MG CAPSULE PO SCH ×4 (06:10→22:19)
[2022-07-20] MEDS: hydrOXYzine PAMOATE 25 MG CAPSULE (FP) PO SCH ×5 (06:10→22:19)
[2022-07-20] MEDS: ESCITALOPRAM OXALATE 10 MG TABLET PO SCH (11:01)
[2022-07-20] MEDS: PRENATAL VITAMINS W/ FOLIC ACID TABLET (FP) PO SCH (11:02)
[2022-07-20] MEDS: amLODIPine BESYLATE 5 MG TABLET (FP) PO SCH ×2 (11:02→22:17)
[2022-07-20] MEDS: BENZTROPINE MESYLATE 1 MG TABLET PO SCH ×2 (11:02→22:17)
[2022-07-20] MEDS: IBUPROFEN 600 MG TABLET (FP) PO PRN (20:15)
[2022-07-20] MEDS: THIAMINE HCL 100 MG TABLET (FP) PO SCH (22:17)
[2022-07-20] MEDS: traZODone HCL 50 MG TABLET (FP) PO SCH (22:17)
[2022-07-21] MEDS ORDERED: chlordiazePOXIDE HCL 10 MG CAPSULE PO PRN
[2022-07-21] MEDS: hydrOXYzine PAMOATE 25 MG CAPSULE (FP) PO SCH ×5 (06:54→22:20)
[2022-07-21] MEDS: chlordiazePOXIDE HCL 10 MG CAPSULE PO SCH ×4 (06:55→22:15)
[2022-07-21] MEDS: PRENATAL VITAMINS W/ FOLIC ACID TABLET (FP) PO SCH (10:39)
[2022-07-21] MEDS: BENZTROPINE MESYLATE 1 MG TABLET PO SCH ×2 (10:39→22:21)
[2022-07-21] MEDS: ESCITALOPRAM OXALATE 10 MG TABLET PO SCH (10:39)
[2022-07-21] MEDS: amLODIPine BESYLATE 5 MG TABLET (FP) PO SCH ×2 (10:39→22:20)
[2022-07-21] MEDS: THIAMINE HCL 100 MG TABLET (FP) PO SCH (22:20)
[2022-07-21] MEDS: traZODone HCL 50 MG TABLET (FP) PO SCH (22:21)
[2022-07-22] MEDS: hydrOXYzine PAMOATE 25 MG CAPSULE (FP) PO SCH ×5 (05:31→22:20)
[2022-07-22] MEDS: chlordiazePOXIDE HCL 10 MG CAPSULE PO SCH ×2 (05:32→18:02)
[2022-07-22] MEDS: ESCITALOPRAM OXALATE 10 MG TABLET PO SCH (10:19)
[2022-07-22] MEDS: amLODIPine BESYLATE 5 MG TABLET (FP) PO SCH ×2 (10:19→22:22)
[2022-07-22] MEDS: BENZTROPINE MESYLATE 1 MG TABLET PO SCH ×2 (10:19→22:20)
[2022-07-22] MEDS: PRENATAL VITAMINS W/ FOLIC ACID TABLET (FP) PO SCH (10:19)
[2022-07-22] MEDS: THIAMINE HCL 100 MG TABLET (FP) PO SCH (22:20)
[2022-07-22] MEDS: traZODone HCL 50 MG TABLET (FP) PO SCH (22:20)
[2022-07-23] MEDS ORDERED: chlordiazePOXIDE HCL 10 MG CAPSULE PO ONE (05:00)
[2022-07-23] MEDS: hydrOXYzine PAMOATE 25 MG CAPSULE (FP) PO SCH ×2 (05:29→10:49)
[2022-07-23 09:18] VITALS: BP 136/68; PULSE 72; RESP 18; TEMP 96.9
[2022-07-23] MEDS: PRENATAL VITAMINS W/ FOLIC ACID TABLET (FP) PO SCH (10:49)
[2022-07-23] MEDS: BENZTROPINE MESYLATE 1 MG TABLET PO SCH (10:49)
[2022-07-23] MEDS: amLODIPine BESYLATE 5 MG TABLET (FP) PO SCH (10:49)
[2022-07-23] MEDS: ESCITALOPRAM OXALATE 10 MG TABLET PO SCH (10:49)
== END 2022-07-23 09:26 | disposition home or self-care (01) | DRG 775 ==
LOC: YASAS 12:23 → UNDOADMIN 13:08 → Y3N 13:08 → Y6N 16:10
PROVIDERS: ADMIT Allergy & Immunology; ATTEND Surgery
PROC: HZ2ZZZZ Detoxification Services for Substance Abuse Treatment (ICD-10-PCS; principal; 2022-07-18)
DX: F10.230 Alcohol dependence with withdrawal, uncomplicated (principal); F12.20 Cannabis dependence, uncomplicated; F19.282 Other psychoactive substance dependence with psychoactive substance-induced sleep disorder; F19.24 Other psychoactive substance dependence with psychoactive substance-induced mood disorder; F20.9 Schizophrenia, unspecified; I10 Essential (primary) hypertension
CPT/HCPCS: 36415; 80053; 82247; 84450; 85027; 86780; 90853; C9803-CS; U0003; U0005

== ENCOUNTER 2022-12-08 17:00 | Inpatient (IN) | payer OTHER ==
[2022-12-08 17:36] VITALS: BMI 29.9
[2022-12-09] MEDS ORDERED: NICOTINE 10 MG CARTRIDGE (INHALER) IH PRN ×2 (01:01→01:06)
[2022-12-09] MEDS ORDERED: BISMUTH SUBSALICYLATE 524 MG/30 ML PO PRN (01:01)
[2022-12-09] MEDS ORDERED: ONDANSETRON *ODT* 4 MG TABLET SL PRN (01:01)
[2022-12-09] MEDS ORDERED: BENZOCAINE/MENTHOL (CHLORASEPTIC ) LOZENGE MM PRN (01:01)
[2022-12-09] MEDS ORDERED: MAGNESIUM HYDROX 2400MG/30ML ORAL SUSPENSION 30 ML CUP PO PRN ×2 (01:01→01:06)
[2022-12-09] MEDS ORDERED: IBUPROFEN 400 MG TABLET (FP) PO PRN (01:01)
[2022-12-09] MEDS ORDERED: MAG HYDROX/AL HYDROX/SIMETH 30 ML UNIT-DOSE CUP PO PRN ×2 (01:01→01:06)
[2022-12-09] MEDS ORDERED: POLYETHYLENE GLYCOL (HEALTHYLAX) 3350 17 GM PACKET PO PRN ×2 (01:01→01:06)
[2022-12-09] MEDS ORDERED: LOPERAMIDE HCL 2 MG CAPSULE PO PRN (01:01)
[2022-12-09] MEDS ORDERED: hydrOXYzine PAMOATE 25 MG CAPSULE (FP) PO PRN (01:01)
[2022-12-09] MEDS ORDERED: NALOXONE HCL (KLOXXADO) 8 MG SPRAY NS PRN (01:01)
[2022-12-09] MEDS ORDERED: METHOCARBAMOL 500 MG TABLET PO PRN (01:01)
[2022-12-09] MEDS ORDERED: DICYCLOMINE HCL 10 MG CAPSULE PO PRN (01:01)
[2022-12-09] MEDS ORDERED: ACETAMINOPHEN 325 MG TABLET (FP) PO PRN ×2 (01:01)
[2022-12-09] MEDS ORDERED: IBUPROFEN 600 MG TABLET (FP) PO PRN (01:01)
[2022-12-09] MEDS ORDERED: BENZTROPINE MESYLATE 1 MG TABLET PO SCH (10:00)
[2022-12-09] MEDS ORDERED: PRENATAL VITAMINS W/ FOLIC ACID TABLET (FP) PO SCH ×2 (10:00)
[2022-12-09] MEDS ORDERED: ESCITALOPRAM OXALATE 10 MG TABLET PO SCH (10:00)
[2022-12-09] MEDS ORDERED: chlordiazePOXIDE HCL 10 MG CAPSULE PO PRN (14:33)
[2022-12-09] MEDS ORDERED: chlordiazePOXIDE HCL 25 MG CAPSULE PO SCH (17:00)
[2022-12-09 17:13] VITALS: BP 120/75; PULSE 98; RESP 18; TEMP 96.9
[2022-12-09] MEDS ORDERED: MELATONIN 5 MG TABLETS PO SCH (22:00)
[2022-12-09] MEDS ORDERED: traZODone HCL 50 MG TABLET (FP) PO SCH ×2 (22:00)
[2022-12-09] MEDS ORDERED: THIAMINE HCL 100 MG TABLET (FP) PO SCH ×2 (22:00)
[2022-12-10] MEDS ORDERED: chlordiazePOXIDE HCL 25 MG CAPSULE PO SCH (05:00)
[2022-12-11] MEDS ORDERED: chlordiazePOXIDE HCL 10 MG CAPSULE PO SCH (05:00)
[2022-12-12] MEDS ORDERED: chlordiazePOXIDE HCL 10 MG CAPSULE PO PRN
[2022-12-12] MEDS ORDERED: chlordiazePOXIDE HCL 10 MG CAPSULE PO SCH (05:00)
[2022-12-13] MEDS ORDERED: chlordiazePOXIDE HCL 10 MG CAPSULE PO ONE (05:00)
== END 2022-12-09 18:15 | disposition left against medical advice (07) | DRG 770 ==
LOC: YASAS 17:00 → Y3N 22:47
PROVIDERS: ADMIT Allergy & Immunology; ATTEND Allergy & Immunology
PROC: HZ2ZZZZ Detoxification Services for Substance Abuse Treatment (ICD-10-PCS; principal; 2022-12-08)
DX: F10.230 Alcohol dependence with withdrawal, uncomplicated (principal); F12.20 Cannabis dependence, uncomplicated; F17.210 Nicotine dependence, cigarettes, uncomplicated; F25.9 Schizoaffective disorder, unspecified; F32.A Depression, unspecified; I10 Essential (primary) hypertension; Z28.310 Unvaccinated for COVID-19; Z28.9 Immunization not carried out for unspecified reason
CPT/HCPCS: 87811; C9803-CS; H0004; H0004-GT; U0003; U0005

== ENCOUNTER 2023-07-18 16:00 | Inpatient (IN) | payer OTHER ==
[2023-07-18 17:46] VITALS: BMI 33.0
[2023-07-18] MEDS ORDERED: MAGNESIUM HYDROX 2400MG/30ML ORAL SUSPENSION 30 ML CUP PO PRN (19:52)
[2023-07-18] MEDS ORDERED: ONDANSETRON *ODT* 4 MG TABLET SL PRN (19:52)
[2023-07-18] MEDS ORDERED: BENZOCAINE/MENTHOL (CHLORASEPTIC ) LOZENGE MM PRN (19:52)
[2023-07-18] MEDS ORDERED: NICOTINE POLACRILEX 2 MG GUM BUC PRN (19:52)
[2023-07-18] MEDS ORDERED: METHOCARBAMOL 500 MG TABLET PO PRN (19:52)
[2023-07-18] MEDS ORDERED: IBUPROFEN 600 MG TABLET (FP) PO PRN (19:52)
[2023-07-18] MEDS ORDERED: BENZONATATE 200 MG CAPSULE PO PRN (19:52)
[2023-07-18] MEDS ORDERED: ACETAMINOPHEN 325 MG TABLET (FP) PO PRN (19:52)
[2023-07-18] MEDS ORDERED: NALOXONE HCL 0.4 MG/ML VIAL IM PRN (19:52)
[2023-07-18] MEDS ORDERED: BISMUTH SUBSALICYLATE 524 MG/30 ML PO PRN (19:52)
[2023-07-18] MEDS ORDERED: IBUPROFEN 400 MG TABLET (FP) PO PRN (19:52)
[2023-07-18] MEDS ORDERED: guaiFENesin 600 MG TABLET.ER (FP) PO PRN (19:52)
[2023-07-18] MEDS ORDERED: chlordiazePOXIDE HCL 25 MG CAPSULE PO PRN (19:52)
[2023-07-18] MEDS ORDERED: POLYETHYLENE GLYCOL (HEALTHYLAX) 3350 17 GM PACKET PO PRN (19:52)
[2023-07-18] MEDS ORDERED: NALOXONE HCL (KLOXXADO) 8 MG SPRAY NS PRN (19:52)
[2023-07-18] MEDS ORDERED: METOPROLOL TARTRATE 25 MG TABLET (FP) PO ONE (20:03)
[2023-07-18] MEDS ORDERED: METOPROLOL TARTRATE 25 MG TABLET (FP) ONE (20:08)
[2023-07-18] MEDS ORDERED: chlordiazePOXIDE HCL 25 MG CAPSULE ONE (20:09)
[2023-07-18] MEDS ORDERED: MAG HYDROX/AL HYDROX/SIMETH 30 ML UNIT-DOSE CUP ONE (20:12)
[2023-07-18] MEDS: MAG HYDROX/AL HYDROX/SIMETH 30 ML UNIT-DOSE CUP PO PRN (20:19)
[2023-07-18] MEDS: THIAMINE HCL 100 MG TABLET (FP) PO SCH (22:07)
[2023-07-18] MEDS: MELATONIN 5 MG TABLETS PO SCH (22:07)
[2023-07-18] MEDS: chlordiazePOXIDE HCL 25 MG CAPSULE PO SCH (22:08)
[2023-07-18] MEDS: DICYCLOMINE HCL 10 MG CAPSULE PO PRN (22:10)
[2023-07-19] MEDS: chlordiazePOXIDE HCL 25 MG CAPSULE PO SCH ×4 (05:38→22:21)
[2023-07-19] MEDS: MAG HYDROX/AL HYDROX/SIMETH 30 ML UNIT-DOSE CUP PO PRN (05:40)
[2023-07-19] MEDS: PRENATAL VITAMINS W/ FOLIC ACID TABLET (FP) PO SCH (10:23)
[2023-07-19] MEDS: DICYCLOMINE HCL 10 MG CAPSULE PO PRN ×2 (10:25→17:42)
[2023-07-19] MEDS: NICOTINE 14 MG/24 HOURS TOPICAL PATCH TD SCH (10:26)
[2023-07-19 12:02] LABS: HEMATOCRIT 39.6 % (35.4-49); MCH 29.8 pg (25.7-33.7); MCHC 32.7 g/dl (32.0-35.9); MEAN CELL VOLUME 91.3 fl (80-96); MEAN PLT VOLUME 9.5 fl (7.5-11.1); PLATELET COUNT 144 10^3/uL (134-434); RBC 4.34 M/mm3 (4.00-5.60); RDW 15.4 % (11.9-15.9); WHITE BLOOD COUNT 5.8 K/mm3 (4.0-10.0)
[2023-07-19 12:06] LABS: ALBUMIN 3.2 g/dl (3.4-5.0); BLOOD UREA NITROGEN 11.6 mg/dL (7-18); CALCIUM 8.8 mg/dL (8.5-10.1)
[2023-07-19 12:09] LABS: CREATININE 1.5 mg/dL (0.55-1.3)
[2023-07-19 12:11] LABS: BILIRUBIN,TOTAL 1.6 mg/dL (0.2-1); TOT PROT 7.5 g/dl (6.4-8.2)
[2023-07-19] MEDS: HYDROCHLOROTHIAZIDE 25 MG TABLET (FP) PO SCH (15:12)
[2023-07-19] MEDS: LOPERAMIDE HCL 2 MG CAPSULE PO PRN (17:42)
[2023-07-19] MEDS: hydrOXYzine PAMOATE 25 MG CAPSULE (FP) PO PRN (17:43)
[2023-07-19] MEDS: amLODIPine BESYLATE 5 MG TABLET (FP) PO SCH (22:19)
[2023-07-19] MEDS: BENZTROPINE MESYLATE 1 MG TABLET PO SCH (22:19)
[2023-07-19] MEDS: MELATONIN 5 MG TABLETS PO SCH (22:19)
[2023-07-19] MEDS: THIAMINE HCL 100 MG TABLET (FP) PO SCH (22:19)
[2023-07-19] MEDS: traZODone HCL 50 MG TABLET (FP) PO SCH (22:20)
[2023-07-20] MEDS: chlordiazePOXIDE HCL 25 MG CAPSULE PO SCH ×4 (05:36→22:26)
[2023-07-20] MEDS: HYDROCHLOROTHIAZIDE 25 MG TABLET (FP) PO SCH (10:31)
[2023-07-20] MEDS: PRENATAL VITAMINS W/ FOLIC ACID TABLET (FP) PO SCH (10:31)
[2023-07-20] MEDS: BENZTROPINE MESYLATE 1 MG TABLET PO SCH ×2 (10:31→22:26)
[2023-07-20] MEDS: NICOTINE 14 MG/24 HOURS TOPICAL PATCH TD SCH (10:31)
[2023-07-20] MEDS: amLODIPine BESYLATE 5 MG TABLET (FP) PO SCH ×2 (10:31→22:26)
[2023-07-20] MEDS: ESCITALOPRAM OXALATE 10 MG TABLET PO SCH (10:33)
[2023-07-20] MEDS: THIAMINE HCL 100 MG TABLET (FP) PO SCH (22:26)
[2023-07-20] MEDS: traZODone HCL 50 MG TABLET (FP) PO SCH (22:26)
[2023-07-20] MEDS: MELATONIN 5 MG TABLETS PO SCH (22:26)
[2023-07-20] MEDS: MAG HYDROX/AL HYDROX/SIMETH 30 ML UNIT-DOSE CUP PO PRN (22:29)
[2023-07-21] MEDS ORDERED: chlordiazePOXIDE HCL 10 MG CAPSULE PO PRN
[2023-07-21] MEDS: chlordiazePOXIDE HCL 10 MG CAPSULE PO SCH ×4 (05:39→22:26)
[2023-07-21] MEDS: LOPERAMIDE HCL 2 MG CAPSULE PO PRN (08:48)
[2023-07-21] MEDS: HYDROCHLOROTHIAZIDE 25 MG TABLET (FP) PO SCH (10:07)
[2023-07-21] MEDS: PRENATAL VITAMINS W/ FOLIC ACID TABLET (FP) PO SCH (10:07)
[2023-07-21] MEDS: BENZTROPINE MESYLATE 1 MG TABLET PO SCH ×2 (10:07→22:26)
[2023-07-21] MEDS: ESCITALOPRAM OXALATE 10 MG TABLET PO SCH (10:07)
[2023-07-21] MEDS: NICOTINE 14 MG/24 HOURS TOPICAL PATCH TD SCH (10:09)
[2023-07-21] MEDS: amLODIPine BESYLATE 5 MG TABLET (FP) PO SCH ×2 (10:10→22:26)
[2023-07-21] MEDS ORDERED: COLLOIDAL OATMEAL 1 BAR EACH TP PRN (14:29)
[2023-07-21] MEDS: hydrOXYzine PAMOATE 25 MG CAPSULE (FP) PO PRN ×2 (17:38→22:28)
[2023-07-21] MEDS: THIAMINE HCL 100 MG TABLET (FP) PO SCH (22:26)
[2023-07-21] MEDS: traZODone HCL 50 MG TABLET (FP) PO SCH (22:26)
[2023-07-21] MEDS: MELATONIN 5 MG TABLETS PO SCH (22:26)
[2023-07-22] MEDS ORDERED: chlordiazePOXIDE HCL 10 MG CAPSULE PO SCH (05:00)
[2023-07-22 09:44] VITALS: BP 102/70; PULSE 128; RESP 18; TEMP 98
[2023-07-22] MEDS: BENZTROPINE MESYLATE 1 MG TABLET PO SCH (10:13)
[2023-07-22] MEDS: HYDROCHLOROTHIAZIDE 25 MG TABLET (FP) PO SCH (10:13)
[2023-07-22] MEDS: ESCITALOPRAM OXALATE 10 MG TABLET PO SCH (10:13)
[2023-07-22] MEDS: NICOTINE 14 MG/24 HOURS TOPICAL PATCH TD SCH (10:13)
[2023-07-22] MEDS: PRENATAL VITAMINS W/ FOLIC ACID TABLET (FP) PO SCH (10:13)
[2023-07-22] MEDS: amLODIPine BESYLATE 5 MG TABLET (FP) PO SCH (10:14)
[2023-07-23] MEDS ORDERED: chlordiazePOXIDE HCL 10 MG CAPSULE PO ONE (05:00)
== END 2023-07-22 10:32 | disposition home or self-care (01) | DRG 775 ==
LOC: YASAS 16:00 → Y3N 21:16
PROVIDERS: ADMIT Allergy & Immunology; ATTEND Surgery
PROC: HZ2ZZZZ Detoxification Services for Substance Abuse Treatment (ICD-10-PCS; principal; 2023-07-18)
DX: F10.230 Alcohol dependence with withdrawal, uncomplicated (principal); F12.20 Cannabis dependence, uncomplicated; F17.210 Nicotine dependence, cigarettes, uncomplicated; F25.9 Schizoaffective disorder, unspecified; F19.24 Other psychoactive substance dependence with psychoactive substance-induced mood disorder; G47.00 Insomnia, unspecified; I10 Essential (primary) hypertension; R74.01 Elevation of levels of liver transaminase levels; Z91.148 Patient's other noncompliance with medication regimen for other reason
CPT/HCPCS: 36415; 80053; 84436; 84439; 84443; 84480; 84481; 85027; 86780; 87635; 90853; 93005; 93010

== ENCOUNTER 2023-11-22 10:37 | Inpatient (IN) | payer OTHER ==
[2023-11-22 11:06] VITALS: BMI 30.7
[2023-11-22] MEDS ORDERED: IBUPROFEN 400 MG TABLET (FP) PO PRN ×2 (11:30→12:23)
[2023-11-22] MEDS ORDERED: IBUPROFEN 600 MG TABLET (FP) PO ONE (11:39)
[2023-11-22] MEDS ORDERED: NALOXONE HCL 0.4 MG/ML VIAL IM PRN (12:23)
[2023-11-22] MEDS ORDERED: hydrOXYzine PAMOATE 25 MG CAPSULE (FP) PO PRN (12:23)
[2023-11-22] MEDS ORDERED: MAGNESIUM HYDROX 2400MG/30ML ORAL SUSPENSION 30 ML CUP PO PRN (12:23)
[2023-11-22] MEDS ORDERED: ACETAMINOPHEN 325 MG TABLET (FP) PO PRN (12:23)
[2023-11-22] MEDS ORDERED: guaiFENesin 600 MG TABLET.ER (FP) PO PRN (12:23)
[2023-11-22] MEDS ORDERED: NALOXONE HCL (KLOXXADO) 8 MG SPRAY NS PRN (12:23)
[2023-11-22] MEDS ORDERED: DICYCLOMINE HCL 10 MG CAPSULE PO PRN (12:23)
[2023-11-22] MEDS ORDERED: BENZOCAINE/MENTHOL (CHLORASEPTIC ) LOZENGE MM PRN (12:23)
[2023-11-22] MEDS ORDERED: ONDANSETRON *ODT* 4 MG TABLET SL PRN (12:23)
[2023-11-22] MEDS ORDERED: MAG HYDROX/AL HYDROX/SIMETH 30 ML UNIT-DOSE CUP PO PRN (12:23)
[2023-11-22] MEDS ORDERED: POLYETHYLENE GLYCOL (HEALTHYLAX) 3350 17 GM PACKET PO PRN (12:23)
[2023-11-22] MEDS ORDERED: LOPERAMIDE HCL 2 MG CAPSULE PO PRN (12:23)
[2023-11-22] MEDS ORDERED: chlordiazePOXIDE HCL 25 MG CAPSULE PO PRN (12:23)
[2023-11-22] MEDS ORDERED: BENZONATATE 200 MG CAPSULE PO PRN (12:23)
[2023-11-22] MEDS ORDERED: BISMUTH SUBSALICYLATE 262 MG/15 ML BTL PO PRN (12:23)
[2023-11-22] MEDS: IBUPROFEN 600 MG TABLET (FP) PO PRN (12:45)
[2023-11-22] MEDS: METHOCARBAMOL 500 MG TABLET PO PRN ×2 (13:57→22:38)
[2023-11-22] MEDS ORDERED: METHOCARBAMOL 500 MG TABLET ONE (14:02)
[2023-11-22] MEDS: chlordiazePOXIDE HCL 25 MG CAPSULE PO SCH ×2 (17:37→22:36)
[2023-11-22] MEDS ORDERED: amLODIPine BESYLATE 5 MG TABLET (FP) PO SCH (22:00)
[2023-11-22] MEDS ORDERED: MELATONIN 5 MG TABLETS PO SCH (22:00)
[2023-11-22] MEDS: THIAMINE HCL 100 MG TABLET (FP) PO SCH (22:36)
[2023-11-23 01:34] LABS: METHADONE, UR NEGATIVE (NEGATIVE); PHENCYCLIDINE,URINE NEGATIVE (NEGATIVE); URINE AMPHETAMINES NEGATIVE (NEGATIVE); URINE BARBITURATES NEGATIVE (NEGATIVE)
[2023-11-23 01:35] LABS: COCAINE, UR NEGATIVE (NEGATIVE); OPIATES, URI NEGATIVE (NEGATIVE); URINE BENZODIAZEPINES POSITIVE (NEGATIVE)
[2023-11-23] MEDS: chlordiazePOXIDE HCL 25 MG CAPSULE PO SCH ×2 (05:38→10:20)
[2023-11-23] MEDS: NICOTINE 14 MG/24 HOURS TOPICAL PATCH TD SCH (10:20)
[2023-11-23] MEDS: PRENATAL VITAMINS W/ FOLIC ACID TABLET (FP) PO SCH (10:20)
[2023-11-23 10:40] LABS: HEMATOCRIT 29.1 % (35.4-49); HEMOGLOBIN 9.2 GM/dL (11.7-16.9); MCH 28.4 pg (25.7-33.7); MCHC 31.5 g/dl (32.0-35.9); MEAN CELL VOLUME 89.9 fl (80-96); MEAN PLT VOLUME 9.9 fl (7.5-11.1); PLATELET COUNT 73 10^3/uL (134-434); RBC 3.24 M/mm3 (4.00-5.60); RDW 23.2 % (11.9-15.9); WHITE BLOOD COUNT 5.1 K/mm3 (4.0-10.0)
[2023-11-23 11:20] LABS: CHLORIDE 103 mmol/L (98-107); POTASSIUM 3.6 mmol/L (3.5-5.1); SODIUM 136 mmol/L (136-145)
[2023-11-23] MEDS: busPIRone HCL 10 MG TABLET (FP) PO SCH ×2 (11:24→22:35)
[2023-11-23] MEDS: ESCITALOPRAM OXALATE 10 MG TABLET PO SCH (11:24)
[2023-11-23] MEDS: BENZTROPINE MESYLATE 1 MG TABLET PO SCH ×2 (11:25→22:34)
[2023-11-23 11:27] LABS: ALBUMIN 2.2 g/dl (3.4-5.0); ANION GAP 7 mmol/L (4-13); BLOOD UREA NITROGEN 4.3 mg/dL (7-18); CALCIUM 8.5 mg/dL (8.5-10.1); CO2 25 mmol/L (21-32); GLUCOSE,RANDOM 90 mg/dL (74-106)
[2023-11-23 11:30] LABS: CREATININE 0.9 mg/dL (0.55-1.3); SGOT/AST 162 U/L (15-37); SGPT/ALT 91 U/L (13-61)
[2023-11-23 11:32] LABS: BILIRUBIN,TOTAL 5.2 mg/dL (0.2-1); TOT PROT 6.8 g/dl (6.4-8.2)
[2023-11-23 11:33] LABS: ALK PHOS 214 U/L (45-117)
[2023-11-23] MEDS ORDERED: LORazepam 1 MG TABLET PO PRN (14:22)
[2023-11-23] MEDS: LORazepam 2 MG TABLET PO SCH ×2 (17:57→22:36)
[2023-11-23] MEDS: THIAMINE HCL 100 MG TABLET (FP) PO SCH (22:35)
[2023-11-23] MEDS: traZODone HCL 100 MG TABLET (FP) PO SCH (22:35)
[2023-11-24] MEDS ORDERED: chlordiazePOXIDE HCL 25 MG CAPSULE PO SCH (05:00)
[2023-11-24] MEDS: LORazepam 2 MG TABLET PO SCH ×4 (05:23→22:48)
[2023-11-24] MEDS: busPIRone HCL 10 MG TABLET (FP) PO SCH ×2 (10:25→22:47)
[2023-11-24] MEDS: BENZTROPINE MESYLATE 1 MG TABLET PO SCH ×2 (10:25→22:47)
[2023-11-24] MEDS: PRENATAL VITAMINS W/ FOLIC ACID TABLET (FP) PO SCH (10:26)
[2023-11-24] MEDS: ESCITALOPRAM OXALATE 10 MG TABLET PO SCH (10:26)
[2023-11-24] MEDS: NICOTINE 14 MG/24 HOURS TOPICAL PATCH TD SCH (10:26)
[2023-11-24 10:56] LABS: HEMATOCRIT 27.9 % (35.4-49); HEMOGLOBIN 9.1 GM/dL (11.7-16.9); MCH 29.6 pg (25.7-33.7); MCHC 32.6 g/dl (32.0-35.9); MEAN CELL VOLUME 90.7 fl (80-96); MEAN PLT VOLUME 9.3 fl (7.5-11.1); PLATELET COUNT 95 10^3/uL (134-434); RBC 3.08 M/mm3 (4.00-5.60); RDW 24.8 % (11.9-15.9); WHITE BLOOD COUNT 5.7 K/mm3 (4.0-10.0)
[2023-11-24 12:06] LABS: ALBUMIN 2.3 g/dl (3.4-5.0); CALCIUM 8.7 mg/dL (8.5-10.1)
[2023-11-24 12:11] LABS: CREATININE 0.9 mg/dL (0.55-1.3)
[2023-11-24 12:13] LABS: TOT PROT 6.9 g/dl (6.4-8.2)
[2023-11-24] MEDS: traZODone HCL 100 MG TABLET (FP) PO SCH (22:47)
[2023-11-24] MEDS: THIAMINE HCL 100 MG TABLET (FP) PO SCH (22:48)
[2023-11-25] MEDS ORDERED: chlordiazePOXIDE HCL 10 MG CAPSULE PO PRN
[2023-11-25] MEDS ORDERED: chlordiazePOXIDE HCL 10 MG CAPSULE PO SCH (05:00)
[2023-11-25] MEDS: LORazepam 1 MG TABLET PO SCH ×4 (05:47→22:14)
[2023-11-25] MEDS: IBUPROFEN 600 MG TABLET (FP) PO PRN (05:49)
[2023-11-25] MEDS: ESCITALOPRAM OXALATE 10 MG TABLET PO SCH (10:10)
[2023-11-25] MEDS: BENZTROPINE MESYLATE 1 MG TABLET PO SCH ×2 (10:10→22:13)
[2023-11-25] MEDS: PRENATAL VITAMINS W/ FOLIC ACID TABLET (FP) PO SCH (10:12)
[2023-11-25] MEDS: NICOTINE 14 MG/24 HOURS TOPICAL PATCH TD SCH (10:12)
[2023-11-25] MEDS: busPIRone HCL 10 MG TABLET (FP) PO SCH ×2 (10:13→22:14)
[2023-11-25 11:35] LABS: HEMATOCRIT 28.4 % (35.4-49); HEMOGLOBIN 9.3 GM/dL (11.7-16.9); MCH 29.8 pg (25.7-33.7); MCHC 32.7 g/dl (32.0-35.9); MEAN CELL VOLUME 91.1 fl (80-96); MEAN PLT VOLUME 9.3 fl (7.5-11.1); PLATELET COUNT 124 10^3/uL (134-434); RBC 3.12 M/mm3 (4.00-5.60); WHITE BLOOD COUNT 6.1 K/mm3 (4.0-10.0)
[2023-11-25 12:18] LABS: CALCIUM 8.8 mg/dL (8.5-10.1); CREATININE 1.1 mg/dL (0.55-1.3)
[2023-11-25 12:19] LABS: ALBUMIN 2.4 g/dl (3.4-5.0); BILIRUBIN,TOTAL 3.5 mg/dL (0.2-1)
[2023-11-25 12:20] LABS: TOT PROT 7.1 g/dl (6.4-8.2)
[2023-11-25 12:22] LABS: BLOOD UREA NITROGEN 6.5 mg/dL (7-18)
[2023-11-25] MEDS: traZODone HCL 100 MG TABLET (FP) PO SCH (22:14)
[2023-11-25] MEDS: THIAMINE HCL 100 MG TABLET (FP) PO SCH (22:14)
[2023-11-26] MEDS ORDERED: LORazepam 0.5 MG TABLET PO PRN
[2023-11-26] MEDS ORDERED: chlordiazePOXIDE HCL 10 MG CAPSULE PO SCH (05:00)
[2023-11-26] MEDS: LORazepam 0.5 MG TABLET PO SCH ×2 (05:44→10:22)
[2023-11-26 06:30] VITALS: BP 107/70; PULSE 86; RESP 16; TEMP 97.8
[2023-11-26] MEDS: BENZTROPINE MESYLATE 1 MG TABLET PO SCH (10:21)
[2023-11-26] MEDS: NICOTINE 14 MG/24 HOURS TOPICAL PATCH TD SCH (10:22)
[2023-11-26] MEDS: busPIRone HCL 10 MG TABLET (FP) PO SCH (10:22)
[2023-11-26] MEDS: PRENATAL VITAMINS W/ FOLIC ACID TABLET (FP) PO SCH (10:22)
[2023-11-26] MEDS: ESCITALOPRAM OXALATE 10 MG TABLET PO SCH (10:22)
[2023-11-27] MEDS ORDERED: chlordiazePOXIDE HCL 10 MG CAPSULE PO ONE (05:00)
[2023-11-27] MEDS ORDERED: LORazepam 0.5 MG TABLET PO ONE (05:00)
== END 2023-11-26 11:00 | disposition home or self-care (01) | DRG 775 ==
LOC: YASAS 10:37 → Y6N 12:50
PROVIDERS: ADMIT Allergy & Immunology; ATTEND Surgery
PROC: HZ2ZZZZ Detoxification Services for Substance Abuse Treatment (ICD-10-PCS; principal; 2023-11-22)
DX: F10.230 Alcohol dependence with withdrawal, uncomplicated (principal); F12.20 Cannabis dependence, uncomplicated; F17.213 Nicotine dependence, cigarettes, with withdrawal; F25.1 Schizoaffective disorder, depressive type; F41.9 Anxiety disorder, unspecified; F32.A Depression, unspecified; I10 Essential (primary) hypertension; Z28.310 Unvaccinated for COVID-19; Z28.9 Immunization not carried out for unspecified reason
CPT/HCPCS: 36415; 80053; 80307; 82607; 82746; 83540; 83550; 85027; 85045; 86780; 87635

== ENCOUNTER 2024-11-18 12:15 | Inpatient (IN) | payer OTHER ==
[2024-11-18 12:40] VITALS: BMI 31.4
[2024-11-18] MEDS ORDERED: NICOTINE POLACRILEX 2 MG GUM BUC PRN (13:00)
[2024-11-18] MEDS ORDERED: BENZOCAINE/MENTHOL (CHLORASEPTIC ) LOZENGE MM PRN (13:00)
[2024-11-18] MEDS ORDERED: BISMUTH SUBSALICYLATE 524 MG/30 ML PO PRN (13:00)
[2024-11-18] MEDS ORDERED: MAG HYDROX/AL HYDROX/SIMETH 30 ML UNIT-DOSE CUP PO PRN (13:00)
[2024-11-18] MEDS ORDERED: NICOTINE POLACRILEX 2 MG LOZENGE BC PRN (13:00)
[2024-11-18] MEDS ORDERED: POLYETHYLENE GLYCOL (HEALTHYLAX) 3350 17 GM PACKET PO PRN (13:00)
[2024-11-18] MEDS ORDERED: guaiFENesin 600 MG TABLET.ER (FP) PO PRN (13:00)
[2024-11-18] MEDS ORDERED: ONDANSETRON *ODT* 4 MG TABLET SL PRN (13:00)
[2024-11-18] MEDS ORDERED: LOPERAMIDE HCL 2 MG CAPSULE PO PRN (13:00)
[2024-11-18] MEDS ORDERED: DICYCLOMINE HCL 10 MG CAPSULE PO PRN (13:00)
[2024-11-18] MEDS ORDERED: BENZONATATE 200 MG CAPSULE PO PRN (13:00)
[2024-11-18] MEDS ORDERED: hydrOXYzine PAMOATE 25 MG CAPSULE (FP) PO PRN (13:00)
[2024-11-18] MEDS ORDERED: MAGNESIUM HYDROX 2400MG/30ML ORAL SUSPENSION 30 ML CUP PO PRN (13:00)
[2024-11-18] MEDS: propRANOLol HCL 10 MG TABLET PO ONE (14:12)
[2024-11-18] MEDS: traZODone HCL 100 MG TABLET (FP) PO SCH (21:47)
[2024-11-18] MEDS: THIAMINE 100 MG TABLET PO SCH (21:47)
[2024-11-18] MEDS: ACETAMINOPHEN 325 MG TABLET (FP) PO PRN (21:48)
[2024-11-18] MEDS: MELATONIN 5 MG TABLETS PO SCH (23:20)
[2024-11-19] MEDS ORDERED: chlordiazePOXIDE HCL 25 MG CAPSULE PO PRN (08:58)
[2024-11-19] MEDS: ESCITALOPRAM OXALATE 10 MG TABLET PO SCH (10:18)
[2024-11-19] MEDS: BENZTROPINE MESYLATE 1 MG TABLET PO SCH (10:18)
[2024-11-19] MEDS: PRENATAL VITAMINS W/ FOLIC ACID TABLET (FP) PO SCH (10:18)
[2024-11-19] MEDS: chlordiazePOXIDE HCL 25 MG CAPSULE PO SCH (10:20)
[2024-11-19] MEDS: IBUPROFEN 600 MG TABLET (FP) PO PRN (10:21)
[2024-11-19 10:47] LABS: POTASSIUM 3.7 mmol/L (3.5-5.1)
[2024-11-19 10:51] LABS: HEMATOCRIT 35.3 % (35.4-49); HEMOGLOBIN 11.7 GM/dL (11.7-16.9); MEAN CELL VOLUME 81.7 fl (80-96); MEAN PLT VOLUME 8.7 fl (7.5-11.1); PLATELET COUNT 158 10^3/uL (134-434); RBC 4.32 M/mm3 (4.00-5.60); RDW 19.3 % (11.9-15.9); WHITE BLOOD COUNT 4.4 K/mm3 (4.0-10.0)
[2024-11-19 10:57] LABS: CALCIUM 9.7 mg/dL (8.5-10.1)
[2024-11-19 10:58] LABS: ALBUMIN 3.4 g/dl (3.4-5.0); BLOOD UREA NITROGEN 13.9 mg/dL (7-18)
[2024-11-19 11:03] LABS: BILIRUBIN,TOTAL 0.4 mg/dL (0.2-1); TOT PROT 7.7 g/dl (6.4-8.2)
[2024-11-21] MEDS: chlordiazePOXIDE HCL 25 MG CAPSULE PO SCH (05:59)
[2024-11-21] MEDS: NALTREXONE HCL 50 MG TABLET PO SCH (14:59)
[2024-11-22] MEDS ORDERED: chlordiazePOXIDE HCL 10 MG CAPSULE PO PRN
[2024-11-22] MEDS: chlordiazePOXIDE HCL 10 MG CAPSULE PO SCH (05:36)
[2024-11-22] MEDS: METHOCARBAMOL 500 MG TABLET PO PRN (21:47)
[2024-11-23] MEDS: chlordiazePOXIDE HCL 10 MG CAPSULE PO SCH (06:07)
[2024-11-23] MEDS: chlordiazePOXIDE HCL 10 MG CAPSULE PO ONE (06:14)
[2024-11-23] MEDS: NALOXONE (NYS OPIOID OVERDOSE PROGRAM) 4 MG/0.1 ML SPRAY NS SCH (15:31)
[2024-11-23] MEDS: IBUPROFEN 400 MG TABLET (FP) PO PRN (22:10)
[2024-11-23] MEDS: ATORVASTATIN CA 10 MG TABLET (FP) PO SCH (22:10)
[2024-11-24] MEDS: chlordiazePOXIDE HCL 10 MG CAPSULE PO ONE (05:34)
[2024-11-24 13:20] VITALS: BP 116/80; PULSE 101; RESP 18; TEMP 97.8
== END 2024-11-24 13:00 | disposition other institution (70) | DRG 774 ==
LOC: YASAS 12:15 → Y6N 13:06
PROVIDERS: ADMIT Allergy & Immunology; ATTEND Surgery
PROC: HZ2ZZZZ Detoxification Services for Substance Abuse Treatment (ICD-10-PCS; principal; 2024-11-18)
DX: F10.230 Alcohol dependence with withdrawal, uncomplicated (principal); F14.20 Cocaine dependence, uncomplicated; F19.282 Other psychoactive substance dependence with psychoactive substance-induced sleep disorder; F19.24 Other psychoactive substance dependence with psychoactive substance-induced mood disorder; F20.9 Schizophrenia, unspecified; F17.210 Nicotine dependence, cigarettes, uncomplicated; F90.9 Attention-deficit hyperactivity disorder, unspecified type; R55 Syncope and collapse; S09.90XA Unspecified injury of head, initial encounter; W18.39XA Other fall on same level, initial encounter; Y92.232 Corridor of hospital as the place of occurrence of the external cause
CPT/HCPCS: 36415; 80053; 85027; 86780; 87811; 93005; 93010

== ENCOUNTER 2024-11-24 13:07 | Inpatient (IN) | payer OTHER ==
[2024-11-24] MEDS ORDERED: NICOTINE POLACRILEX 4 MG GUM BUC PRN (19:40)
[2024-11-24] MEDS ORDERED: BENZONATATE 200 MG CAPSULE PO PRN (19:40)
[2024-11-24] MEDS ORDERED: guaiFENesin 600 MG TABLET.ER (FP) PO PRN (19:40)
[2024-11-24] MEDS ORDERED: hydrOXYzine PAMOATE 25 MG CAPSULE (FP) PO PRN (19:40)
[2024-11-24] MEDS ORDERED: LOPERAMIDE HCL 2 MG CAPSULE PO PRN (19:40)
[2024-11-24] MEDS ORDERED: POLYETHYLENE GLYCOL (HEALTHYLAX) 3350 17 GM PACKET PO PRN (19:40)
[2024-11-24] MEDS: ATORVASTATIN CA 10 MG TABLET (FP) PO SCH (21:17)
[2024-11-24] MEDS: THIAMINE 100 MG TABLET PO SCH (21:17)
[2024-11-24] MEDS: MELATONIN 5 MG TABLETS PO SCH (21:17)
[2024-11-24] MEDS: METHOCARBAMOL 500 MG TABLET PO PRN (21:17)
[2024-11-24] MEDS: traZODone HCL 100 MG TABLET (FP) PO SCH (21:17)
[2024-11-25] MEDS: NICOTINE 21 MG/24 HOURS TOPICAL PATCH TD SCH (05:33)
[2024-11-25] MEDS: PRENATAL VITAMINS W/ FOLIC ACID TABLET (FP) PO SCH (05:33)
[2024-11-25] MEDS: NALTREXONE HCL 50 MG TABLET PO SCH (09:30)
[2024-11-25] MEDS: ESCITALOPRAM OXALATE 10 MG TABLET PO SCH (09:30)
[2024-11-25] MEDS: IBUPROFEN 600 MG TABLET (FP) PO PRN (18:06)
[2024-11-26] MEDS: MAGNESIUM HYDROX 2400MG/30ML ORAL SUSPENSION 30 ML CUP PO PRN (12:18)
[2024-11-27] MEDS: IBUPROFEN 400 MG TABLET (FP) PO PRN (10:04)
[2024-11-27] MEDS: BACLOFEN 10 MG TABLET (FP) PO SCH (21:20)
[2024-11-27] MEDS: SUVOREXANT 10 MG TABLET PO PRN (21:20)
[2024-11-28] MEDS: NALTREXONE HCL 50 MG TABLET PO SCH (10:28)
[2024-11-28 14:14] LABS: MAGNESIUM 1.9 mg/dL (1.8-2.4)
[2024-11-30] MEDS: BENZOCAINE/MENTHOL (CHLORASEPTIC ) LOZENGE MM PRN (23:43)
[2024-12-01] MEDS: ACETAMINOPHEN 325 MG TABLET (FP) PO PRN (01:51)
[2024-12-01] MEDS: P-EPHED 60MG/TRIPROLIDI 2.5MG TABLET PO PRN (02:16)
[2024-12-01] MEDS ORDERED: guaiFENesin 600 MG TABLET.ER (FP) PO PRN (13:38)
[2024-12-01] MEDS ORDERED: BENZONATATE 200 MG CAPSULE PO PRN (13:39)
[2024-12-01] MEDS: LACTULOSE 20 GM/30 ML UDC (FOR ORAL USE ONLY) PO SCH (14:54)
[2024-12-01] MEDS: ATORVASTATIN CA 10 MG TABLET (FP) PO SCH (21:28)
[2024-12-01] MEDS: CHLORHEXIDINE GLUCONATE 0.12% 15ML CUP MM SCH (21:29)
[2024-12-02] MEDS: SUVOREXANT 10 MG TABLET PO PRN (21:22)
[2024-12-02] MEDS: OXYMETAZOLINE 0.05% NASAL SOLUTION 15 ML BOTTLE NS PRN (21:25)
[2024-12-03] MEDS ORDERED: BENZTROPINE MESYLATE 1 MG TABLET PO SCH (13:00)
[2024-12-03] MEDS: BENZTROPINE MESYLATE 1 MG TABLET PO SCH (13:04)
[2024-12-03] MEDS: OXYMETAZOLINE 0.05% NASAL SOLUTION 15 ML BOTTLE NS SCH (21:20)
[2024-12-11] MEDS: MAG HYDROX/AL HYDROX/SIMETH 30 ML UNIT-DOSE CUP PO PRN (09:09)
[2024-12-11] MEDS: NALTREXONE MICROSPHERES (VIVITROL) 380 MG DISP.SYRIN IM ONE (10:03)
[2024-12-12] MEDS: NALTREXONE HCL 50 MG TABLET PO SCH (10:00)
[2024-12-22 07:10] VITALS: BP 125/88; PULSE 104; RESP 17; TEMP 97.7
[2024-12-23] MEDS ORDERED: NALTREXONE MICROSPHERES (VIVITROL) 380 MG DISP.SYRIN IM ONE (10:00)
== END 2024-12-22 13:56 | disposition home or self-care (01) | DRG 772 ==
LOC: YASAS 13:07 → Y3NR 13:09 → Y3E 11-25 09:37
PROVIDERS: ADMIT Allergy & Immunology; ATTEND Psychiatry & Neurology Pain Medicine
PROC: HZ42ZZZ Group Counseling for Substance Abuse Treatment, Cognitive-Behavioral (ICD-10-PCS; principal; 2024-11-24)
DX: F10.20 Alcohol dependence, uncomplicated (principal); F14.20 Cocaine dependence, uncomplicated; F12.20 Cannabis dependence, uncomplicated; F17.210 Nicotine dependence, cigarettes, uncomplicated; F19.282 Other psychoactive substance dependence with psychoactive substance-induced sleep disorder; F19.24 Other psychoactive substance dependence with psychoactive substance-induced mood disorder; F41.9 Anxiety disorder, unspecified; F90.9 Attention-deficit hyperactivity disorder, unspecified type; E72.20 Disorder of urea cycle metabolism, unspecified; E78.00 Pure hypercholesterolemia, unspecified; I10 Essential (primary) hypertension; Z91.148 Patient's other noncompliance with medication regimen for other reason; Z59.02 Unsheltered homelessness
CPT/HCPCS: 0241U-QW; 36415; 70450-TC; 80053; 80061; 82140; 82652; 83036; 83735; 84484; 85025; 86803; 93005; 93010; J0475

== ENCOUNTER 2025-09-16 13:19 | Inpatient (IN) | payer OTHER ==
[2025-09-16 14:48] VITALS: BMI 30.7
[2025-09-16] MEDS ORDERED: IBUPROFEN 400 MG TABLET (FP) PO PRN (15:00)
[2025-09-16] MEDS ORDERED: BISMUTH SUBSALICYLATE 524 MG/30 ML PO PRN (15:00)
[2025-09-16] MEDS ORDERED: POLYETHYLENE GLYCOL (HEALTHYLAX) 3350 17 GM PACKET PO PRN (15:00)
[2025-09-16] MEDS ORDERED: NICOTINE POLACRILEX 2 MG GUM BUC PRN (15:00)
[2025-09-16] MEDS ORDERED: MAGNESIUM HYDROX 2400MG/30ML ORAL SUSPENSION 30 ML CUP PO PRN (15:00)
[2025-09-16] MEDS ORDERED: NALOXONE (NARCAN) HCL 4 MG/0.1 ML SPRAY NS PRN (15:00)
[2025-09-16] MEDS ORDERED: MAG HYDROX/AL HYDROX/SIMETH 30 ML UNIT-DOSE CUP PO PRN (15:00)
[2025-09-16] MEDS ORDERED: hydrOXYzine PAMOATE 25 MG CAPSULE (FP) PO PRN (15:00)
[2025-09-16] MEDS ORDERED: DICYCLOMINE HCL 10 MG CAPSULE PO PRN (15:00)
[2025-09-16] MEDS ORDERED: LOPERAMIDE HCL 2 MG CAPSULE PO PRN (15:00)
[2025-09-16] MEDS ORDERED: BENZONATATE 200 MG CAPSULE PO PRN (15:00)
[2025-09-16] MEDS ORDERED: ONDANSETRON *ODT* 4 MG TABLET SL PRN (15:00)
[2025-09-16] MEDS ORDERED: BENZOCAINE/MENTHOL (CHLORASEPTIC ) LOZENGE MM PRN (15:00)
[2025-09-16] MEDS ORDERED: guaiFENesin 600 MG TABLET.ER (FP) PO PRN (15:00)
[2025-09-16] MEDS: NALTREXONE HCL 50 MG TABLET PO ONE (17:18)
[2025-09-16] MEDS: THIAMINE 100 MG TABLET PO SCH (22:16)
[2025-09-16] MEDS: ATORVASTATIN CA 20 MG TABLET (FP) PO SCH (22:17)
[2025-09-16] MEDS: MELATONIN 5 MG TABLETS PO SCH (22:17)
[2025-09-16] MEDS: METHOCARBAMOL 500 MG TABLET PO PRN (22:18)
[2025-09-16] MEDS: QUEtiapine FUMARATE 100 MG TABLET (FP) PO PRN (22:19)
[2025-09-17] MEDS: PRENATAL VITAMINS W/ FOLIC ACID TABLET (FP) PO SCH (10:08)
[2025-09-17] MEDS: NICOTINE 14 MG/24 HOURS TOPICAL PATCH TD SCH (10:08)
[2025-09-17] MEDS: NALTREXONE HCL 50 MG TABLET PO SCH (10:10)
[2025-09-17] MEDS: BENZTROPINE MESYLATE 1 MG TABLET PO SCH (10:11)
[2025-09-17 10:16] LABS: MCHC 31.7 g/dl (32.3-36.5); MEAN CELL VOLUME 93.1 fl (79.0-92.2); MEAN PLT VOLUME 10.7 fl (9.4-12.4); RDW 12.8 % (12.1-15.9)
[2025-09-17 10:17] LABS: GLUCOSE,RANDOM 90 mg/dL (74-106); TOT PROT 7.6 g/dl (6.4-8.2)
[2025-09-17 10:18] LABS: CO2 25 mmol/L (21-32)
[2025-09-17 10:20] LABS: ALK PHOS 121 U/L (40-150)
[2025-09-17 10:22] LABS: SGOT/AST 55 U/L (5-34); SGPT/ALT 38 U/L (0-55)
[2025-09-17 10:23] LABS: CREATININE 0.82 mg/dL (0.55-1.3)
[2025-09-17] MEDS: ESCITALOPRAM OXALATE 10 MG TABLET PO SCH (11:44)
[2025-09-17] MEDS: QUEtiapine FUMARATE 100 MG TABLET (FP) PO SCH (22:12)
[2025-09-19] MEDS: ACETAMINOPHEN 325 MG TABLET (FP) PO PRN (08:46)
[2025-09-19] MEDS: IBUPROFEN 600 MG TABLET (FP) PO PRN (10:22)
[2025-09-19 16:50] VITALS: RESP 16
[2025-09-20 06:23] VITALS: PULSE 78
[2025-09-20 08:56] VITALS: BP 121/79; TEMP 97.9
== END 2025-09-20 13:20 | disposition home or self-care (01) | DRG 774 ==
LOC: YASAS 13:19 → SUATTDRO 13:19 → Y3N 16:49
PROVIDERS: ADMIT Family Medicine; ATTEND Counselor Addiction (Substance Use Disorder)
PROC: HZ2ZZZZ Detoxification Services for Substance Abuse Treatment (ICD-10-PCS; principal; 2025-09-16)
DX: F10.230 Alcohol dependence with withdrawal, uncomplicated (principal); F14.20 Cocaine dependence, uncomplicated; F12.20 Cannabis dependence, uncomplicated; F17.210 Nicotine dependence, cigarettes, uncomplicated; F19.282 Other psychoactive substance dependence with psychoactive substance-induced sleep disorder; F25.9 Schizoaffective disorder, unspecified; F90.9 Attention-deficit hyperactivity disorder, unspecified type; I10 Essential (primary) hypertension
CPT/HCPCS: 36415; 80053; 80305; 80307; 85027; 86780; 87637-QW; 90853; 93005; 93010